=== PATIENT | male | born 1995 | race Caucasian/White ===

== ENCOUNTER 2021-05-19 13:31 | Emergency (ER) | payer OTHER, SELFPAY ==
--- NOTE | ~2021-05-19 | XR_ITS ---
EXAMINATION: RIGHT HAND AND WRIST X-RAY CLINICAL INFORMATION: Pain COMPARISON: None TECHNIQUE: 4 views of the right hand and wrist FINDINGS: Bone alignment is normal. No fracture or dislocation is seen. There is question of widening of the scapholunate distance on the scaphoid view only. Joint spaces are otherwise normal. Soft tissues are normal. XR/XR hand wrist RT IMPRESSION: Question widened scapholunate distance seen on one view only, the scaphoid view. Otherwise unremarkable exam.
[2021-05-19 14:15] VITALS: BP 112/67; PULSE 56; RESP 18; TEMP 36.7; O2SAT 99; BMI 21.2
--- NOTE | 2021-05-19 15:17 | ED_ITS ---
HPI - Extremity Problem General Chief complaint: Extremity Injury, Upper Stated complaint: Wrist inj Time Seen by Provider: 05/19/21 15:17 Source: patient Mode of arrival: ambulatory Limitations: no limitations History of Present Illness HPI Narrative: 25-year-old male who presents emergency department for evaluation right wrist pain x2 months. The patient states that he punched a punching machine 2 months prior and injured his right wrist. He states that since that time he has pain whenever he flexes his wrist or if he does pushups. He he states that the pain is increased over the past week and he was concerned that he may have broken a bone so he came to the emergency department for evaluation. Patient denies any other injury and has not been ill in any other way. Related Data Allergies Allergy/AdvReac Type Severity Reaction Status Date / Time No Known Allergies Allergy Unverified 01/04/20 16:43 Review of Systems Verdana 4l Review of Systems: Yes all other systems are reviewed and Verdana 4d are negative PMFSH Past [facility] History [facility] Narrative: past medical history: None. Past surgical history: None. Social history: He denies tobacco, alcohol and drug use. Medical History (Updated 05/19/21 @ 15:29 by Flako Ordoñez MD) No known health problems Social History Social History Advance Directives: No Advance Directives Information Provided: No Physical Exam Verdana 4l Vital Signs: Verdana 4d Verdana 4d Vital Signs: Verdana 4d Verdana 4Bd Last Vital Signs Verdana 4d Java Manager New 4d Java Manager New 4d Temp 98.1 F 05/19/21 14:15 Java Manager New 4d Pulse 56 05/19/21 14:15 Java Manager New 4d Resp 18 05/19/21 14:15 BP 112/67 05/19/21 14:15 Pulse Ox 99 05/19/21 14:15 BMI result Body Mass Index 21.2 Const: General: cooperative and healthy appearing Extrem: Other: Patient's right wrist appears to be normal with no soft tissue swelling, ecchymosis or increased warmth. The patient does have tenderness with palpation over the anatomic snuffbox. The patient has full range of motion both passive and actively without any limitations or significant pain. Patient makes a strong okay sign and has good opponents. His extremities neurovascular intact. Course Course Course Narrative: 25-year-old male who presents emergency department for evaluation chronic wrist pain after punching a punching bag 2 months prior. The patient's examination did reveal tenderness with palpation over the anatomic snuffbox with no significant pain with passive active range of motion and good strength and a normal sensory exam. X-rays of the right wrist were obtained and the radiologist noted widening of the scaphoid lunate distance on the scaphoid view only. I did review this with the patient. The patient we placed in a wrist splint. The patient will be referred to our hand surgeon for evaluation of possible scaphoid lunate joint dislocations. He was advised to take Tylenol and ibuprofen for the pain. Discharge Plan Discharge Clinical Impression: Injury of wrist, right, Scapho-lunate dissociation Patient Disposition: Home, Self-Care Instructions: Wrist Injury (ED) Additional Instructions: Wear the splint for 1-2 weeks until you are re-evaluated by the orthopedic hand surgeon. The x-ray of your right wrist did not reveal any broken bones but you do have an increased space between your scaphoid bone and the lunate bone and this may be consistent with a scapholunate joint dislocation. Take ibuprofen 200 mg pills, 3 pills every 6 hours as needed for pain. Take Tylenol (acetaminophen) 500 mg pills, 2 pills every 4 to 6 hours as needed for pain. Follow-up with our hand surgeon, Dr. Combs in 1 week. Please return to the emergency department if your symptoms get worse or if you develop any symptoms that are concerning to you. Referrals: Chiara Stauffer MD [Physician] - 1 week
== END 2021-05-19 15:40 | disposition home or self-care (01) ==
PROVIDERS: Emergency Provider Emergency Medicine Emergency Medical Services
DX: S63.094A Other dislocation of right wrist and hand, initial encounter (principal); W21.89XA Striking against or struck by other sports equipment, initial encounter; Y93.71 Activity, boxing; Y92.9 Unspecified place or not applicable; Y99.9 Unspecified external cause status
CPT/HCPCS: 73110; 73130; 99284

== ENCOUNTER 2021-06-18 11:38 | Outpatient (REF) | payer OTHER, SELFPAY | END 2021-06-18 11:39 | disposition home or self-care (01) | LOC: HO.HOSX 11:38 | PROVIDERS: Visit Provider Physician Assistant | DX: Z13.89 Encounter for screening for other disorder (principal) ==

== ENCOUNTER 2021-06-30 12:43 | Outpatient (REF) | payer OTHER, SELFPAY ==
--- NOTE | ~2021-06-30 | XR_ITS ---
EXAMINATION: BILATERAL HAND. CLINICAL INFORMATION: Pain in bilateral hands. COMPARISON: None TECHNIQUE: 3 views of the right hand and 3 views of the left hand with one view of both hands. FINDINGS: LEFT HAND: There is no visible fracture, dislocation subluxation. The PIP, DIP and MCP joints are maintained normal. RIGHT HAND: There is no visible acute fracture, dislocation, subluxation. No bony erosive changes or spurring. No soft tissue abnormality. The joints are unremarkable. XR/XR hand RT min 3V IMPRESSION: Unremarkable bilateral hand exam.
--- NOTE | ~2021-06-30 | XR_ITS ---
EXAMINATION: BILATERAL HAND. CLINICAL INFORMATION: Pain in bilateral hands. COMPARISON: None TECHNIQUE: 3 views of the right hand and 3 views of the left hand with one view of both hands. FINDINGS: LEFT HAND: There is no visible fracture, dislocation subluxation. The PIP, DIP and MCP joints are maintained normal. RIGHT HAND: There is no visible acute fracture, dislocation, subluxation. No bony erosive changes or spurring. No soft tissue abnormality. The joints are unremarkable. XR/XR hand LT min 3V IMPRESSION: Unremarkable bilateral hand exam.
== END 2021-06-30 12:44 | disposition home or self-care (01) ==
LOC: HO.HOSX 12:43
PROVIDERS: Visit Provider Physician Assistant
DX: S69.91XD Unspecified injury of right wrist, hand and finger(s), subsequent encounter (principal); M79.641 Pain in right hand; X58.XXXD Exposure to other specified factors, subsequent encounter
CPT/HCPCS: 73130; 99202

== ENCOUNTER 2021-07-15 13:08 | Outpatient (REF) | payer OTHER, SELFPAY ==
--- NOTE | ~2021-07-15 | FL_ITS ---
EXAMINATION: XR INJECTION ARTHROGRAM WRIST, RIGHT CLINICAL INFORMATION: Right wrist injury. Pain. COMPARISON: None. TECHNIQUE: Following explaining fluoroscopy-guided guided right wrist arthrogram procedure, benefits and risks, a written consent was obtained. Patient was placed prone with shoulder extended and hand prone. The area of the dorsal wrist was cleaned and draped in usual sterile manner. 1% lidocaine was injected puncture site. A 25-gauge 1 1/2 inch needle was inserted from the skin into the radioscaphoid joint and 1 mL of nonionic contrast was injected. A single image was obtained for documentation. Subsequently, 0.1 mL of gadolinium diluted in 10 mL of saline of which 22 mL of contrast/combination was injected and needle withdrawn. Complete hemostasis achieved at puncture site. Simple Band-Aid applied postprocedure. Patient tolerated procedure extremely well. FINDINGS: On 2 images obtained of the right wrist, there is needle positioned at the radioscaphoid junction. Visualized radioulnar carpal joints and intercarpal joints are normal. There is faint contrast seen within the scapholunate space. No bony abnormality seen. FLUOROSCOPY TIME: 2.5 minutes DOSE AREA PRODUCT: 21.865 uGy-m2 (microgray-meter squared) FL/FL arthrogram wrist RT IMPRESSION: Unremarkable right wrist arthrogram.
--- NOTE | ~2021-07-15 | MR_ITS ---
EXAMINATION: MR WRIST WITH CONTRAST, RIGHT CLINICAL INFORMATION: Right wrist injury, pain. COMPARISON: X-ray of the right hand April 2021 TECHNIQUE: MRI of the wrist was performed following the intra-articular administration of a dilute gadolinium-containing solution (arthrogram) on a high-field scanner. FINDINGS: Subcutaneous Soft Tissues: Normal. Muscles And Tendons: Normal. Neurovascular Structures: Normal. Intraosseous Ligaments: Scapholunate ligament There is contrast present within the radiocarpal compartment and midcarpal compartment. There is a tiny linear area of intermediate increased signal in the scapholunate ligament at the lunate attachment of the central portion of the ligament.. There is no widening of the articulation. Lunotriquetral Ligament: Normal. Triangular Fibrocartilage Complex: Normal Bone And Articular Cartilage: No arthrosis. Miscellaneous: There is a 3 mm fluid collection along the volar aspect of the 3rd carpometacarpal joint compatible with a small synovial recess or ganglion cyst. MR/MR wrist RT w con IMPRESSION: 1. Possible small defect/tear in the central scapholunate ligament given the findings in the ligament and the contrast present in the midcarpal compartment. There is no associated widening of the scapholunate joint. 2. Small synovial recess or ganglion cyst along the volar aspect of the 3rd carpometacarpal joint.
== END 2021-07-15 13:09 | disposition home or self-care (01) ==
LOC: HO.XRAY 13:08
PROVIDERS: Visit Provider Physician Assistant
DX: S69.91XA Unspecified injury of right wrist, hand and finger(s), initial encounter (principal); M25.531 Pain in right wrist; X58.XXXA Exposure to other specified factors, initial encounter; Y93.9 Activity, unspecified; Y92.9 Unspecified place or not applicable; Y99.9 Unspecified external cause status
CPT/HCPCS: 25246; 73115; 73222

== ENCOUNTER 2021-07-23 13:02 | Outpatient (REF) | payer OTHER, SELFPAY ==
--- NOTE | ~2021-07-23 | XR_ITS ---
EXAMINATION: XR WRIST, RIGHT CLINICAL INFORMATION: Pain in right wrist COMPARISON: 07/15/2021 TECHNIQUE: One view of the right wrist. XR/XR wrist RT 2V FINDINGS/IMPRESSION: * Equivocal asymmetry of the scapholunate interval on the right appear slightly wider than that on the left, however still within normal limits. * No fractures. * Soft tissues unremarkable.
== END 2021-07-23 13:03 | disposition home or self-care (01) ==
LOC: HO.HOSX 13:02
PROVIDERS: Visit Provider Orthopaedic Surgery
DX: S63.501A Unspecified sprain of right wrist, initial encounter (principal)
CPT/HCPCS: 73100; 99212

== ENCOUNTER 2021-08-20 08:50 | Outpatient (REF) | payer OTHER, SELFPAY ==
--- NOTE | ~2021-08-20 | XR_ITS ---
EXAMINATION: XR WRIST, RIGHT CLINICAL INFORMATION: Pain. COMPARISON: Comparison is made to previous exam dated 07/23/2021. TECHNIQUE 4 views of the right wrist. FINDINGS: There is no bony erosion. There is no osteopenia. Alignment is felt to be within normal limits. There is some prominence of the pronator fat stripe. There may be some mild ulnar migration of the lunate. There is some possible mild widening of the scapholunate articulation. The lunate however, does not appear subluxed ventrally or dorsally on the lateral image. XR/XR wrist RT w scaphoid IMPRESSION: I cannot exclude some mild ulnar subluxation of the lunate and some mild widening of the lunate and navicular articulation. This may represent patient's baseline. There is prominence of the pronator fat stripe. If further evaluation is warranted consider MRI.
== END 2021-08-20 08:51 | disposition home or self-care (01) ==
LOC: HO.HOSX 08:50
PROVIDERS: Visit Provider Orthopaedic Surgery
DX: M25.531 Pain in right wrist (principal); S63.591A Other specified sprain of right wrist, initial encounter; W21.89XA Striking against or struck by other sports equipment, initial encounter; Y93.59 Activity, other involving other sports and athletics played individually; Y92.39 Other specified sports and athletic area as the place of occurrence of the external cause; Y99.8 Other external cause status
CPT/HCPCS: 73110; 99212

== ENCOUNTER 2021-09-24 11:54 | Outpatient (REF) | payer OTHER, SELFPAY ==
[2021-09-24 12:15] LABS: COVID-19 Test Positive (Negative)
== END 2021-09-24 11:55 | disposition home or self-care (01) ==
LOC: HO.LAB 11:54
PROVIDERS: Visit Provider Internal Medicine
DX: Z20.822 Contact with and (suspected) exposure to COVID-19 (principal)
CPT/HCPCS: 87635; C9803

== ENCOUNTER 2021-10-15 09:00 | Outpatient (REF) | payer OTHER, SELFPAY | END 2021-10-15 09:01 | disposition home or self-care (01) | LOC: HO.HOSX 09:00 | PROVIDERS: Visit Provider Orthopaedic Surgery | DX: Z13.89 Encounter for screening for other disorder (principal) ==